=== PATIENT | female | born 1960 | race Caucasian/White ===

== ENCOUNTER 2020-08-14 09:39 | Emergency (ER) | payer BC ==
[~2020-08-14] VITALS: Ht 162.6 cm; Wt 54.5 kg
[2020-08-14] MEDS ORDERED: metoclopramide 5 mg/ml inj IV ONE (09:55)
[2020-08-14 10:30] LABS: BASOPHILS # (AUTO) 0.1 X10'3 (0-0.2); BASOPHILS % (AUTO) 0.6 % (0-1); EOSINOPHILS # (AUTO) 0.1 X10'3 (0-0.9); EOSINOPHILS % (AUTO) 0.8 % (0-6); HEMATOCRIT 40.2 % (35.0-45.0); HEMOGLOBIN 13.5 g/dl (12.0-16.0); LYMPHOCYTES # (AUTO) 1.3 X10'3 (1.1-4.8); LYMPHOCYTES % (AUTO) 10.8 % (21-51); MEAN CORPUSCULAR HEMOGLOBIN 30.8 PG (27.0-31.0); MEAN CORPUSCULAR HGB CONC 33.5 g/dL (33.0-36.5); MEAN PLATELET VOLUME 8.6 FL (7.4-10.4); MONOCYTES # (AUTO) 0.6 X10'3 (0-0.9); MONOCYTES % (AUTO) 4.8 % (2-12); PLATELET COUNT 239 X10'3 (140-440); RED BLOOD COUNT 4.37 X10'6 (4.20-5.60); RED CELL DISTRIBUTION WIDTH 13.4 % (11.5-14.5); WHITE BLOOD COUNT 12.1 X10'3 (4.5-11.0)
--- NOTE | 2020-08-14 10:31 | NUR ---
pt out to ct via [facility] with russian language instructor
--- NOTE | 2020-08-14 10:46 | NUR ---
returns from ct
[2020-08-14 10:47] LABS: CREATININE 0.93 MG/DL (0.40-0.90); POTASSIUM 3.4 MMOL/L (3.5-5.1); SODIUM 140 MMOL/L (135-145); eGFR 61 ML/MIN
[2020-08-14 10:50] LABS: ALANINE AMINOTRANSFERASE 33 U/L (12-78); ALBUMIN 4.2 G/DL (3.4-5.0); ALBUMIN/GLOBULIN RATIO 1.2 (1.1-1.5); ALKALINE PHOSPHATASE 76 IU/L (46-116); ASPARTATE AMINO TRANSFERASE 26 U/L (10-37); BILIRUBIN,TOTAL 0.5 MG/DL (0.1-1.0); BLOOD UREA NITROGEN 20 MG/DL (7-18); CALCIUM 9.2 MG/DL (8.5-10.1); CHLORIDE 105 MMOL/L (99-107); GLUCOSE 97 MG/DL (70-104); TOTAL CARBON DIOXIDE 24.3 MMOL/L (24-32); TOTAL PROTEIN 7.6 G/DL (6.4-8.2)
[2020-08-14 11:19] LABS: ANION GAP 11 (8-16)
[2020-08-14 11:20] LABS: BUN/CREATININE RATIO 21.5 (6.6-38.0)
[2020-08-14 13:15] VITALS: BP 91/66
== END 2020-08-14 13:10 | disposition home or self-care (01) ==
LOC: ER 09:39
DX: R56.9 Unspecified convulsions (principal); N18.9 Chronic kidney disease, unspecified; G43.909 Migraine, unspecified, not intractable, without status migrainosus; R41.0 Disorientation, unspecified; Z86.2 Personal history of diseases of the blood and blood-forming organs and certain disorders involving the immune mechanism; Z56.0 Unemployment, unspecified
CPT/HCPCS: 36415; 70450; 80053; 82948; 85025; 93005; 96374; 99285; J2765

== ENCOUNTER 2025-05-09 09:45 | Outpatient (CLI) | payer MEDICARE, BC ==
--- NOTE | 2025-05-09 13:04 | RADIOLOGY REPORT ---
CLINICAL INDICATION: UNIL PRIMARY OSTEOARTH OF FIRST CARPOMETACARP JOINT, R HAND COMPARISON: None TECHNIQUE: Multiplanar, multi-sequence MRI of the right hand was performed without intravenou s contrast. Contrast: None INTERPRETATION: Bones: There is no fracture. There is no marrow replacing lesion. Joints: There is severe 1st carpometacarpal joint space narrowing and loss of the articular cartilage over both sides of the joint. There are osteophytes along the base of the 1st metacarpal bone. There is mild volar and radial subluxation of the 1st proximal phalanx relative to the 1st metacarpal bone . Soft tissues: The ulnar collateral ligament of the thumb is attenuated at the 1st proximal phalanx at tachment compatible with old sprain. No full-thickness disruption. The radial collateral ligament is intact. The flexor and extensor tendons are intact. There is no soft tissue mass or fluid collection. IMPRESSION: 1. Severe 1st carpometacarpal osteoarthritis. 2. Ulnar collateral ligament sprain. Mild subluxation at the 1st metacarpophalangeal joint. HS:Y
== END 2025-05-09 23:59 | disposition home or self-care (01) ==
LOC: MRI02 09:45
PROVIDERS: ATTEND Orthopaedic Surgery Hand Surgery
DX: S53.31XA Traumatic rupture of right ulnar collateral ligament, initial encounter (principal); S63.111A Subluxation of metacarpophalangeal joint of right thumb, initial encounter; M18.11 Unilateral primary osteoarthritis of first carpometacarpal joint, right hand; M79.644 Pain in right finger(s); X58.XXXA Exposure to other specified factors, initial encounter; Y93.89 Activity, other specified; Y92.89 Other specified places as the place of occurrence of the external cause; Y99.8 Other external cause status
CPT/HCPCS: 73218